=== PATIENT | male | born 1960 | race Caucasian/White ===

== ENCOUNTER 2022-04-12 07:32 | Inpatient (IN) | payer BC ==
[~2022-04-12] VITALS: Ht 175.3 cm; Wt 80.7 kg
[2022-04-12 07:32] VITALS: BP_SYST 163
--- NOTE | 2022-04-12 07:32 | NUR ---
BROUGHT BACK TO BED #5 AND TRIAGED. REPORT GIVEN TO JOCELYN
--- NOTE | 2022-04-12 07:35 | NUR ---
DR ZHOU AT BEDSIDE FOR EVALUATION
--- NOTE | 2022-04-12 08:20 | NUR ---
DR ZHOU AT BEDSIDE PERFORMING PROCEDURE
[2022-04-12 09:32] LABS: BASOPHILS % (AUTO) 0.2 % (0.0-2.0); CALCIUM 9.1 mg/dL (8.4-11.0); CREATININE 3.53 mg/dL (0.55-1.30); EOSINOPHILS % (AUTO) 0.5 % (0.0-4.0); HEMATOCRIT 47.4 % (36-54); HEMOGLOBIN 16.9 g/dL (14.0-18.0); LYMPHOCYTES # (AUTO) 1.3 K/uL (1.0-5.5); LYMPHOCYTES % (AUTO) 12.4 % (20.5-51.5); MEAN CORPUSCULAR HEMOGLOBIN 32 pg (27-31); MEAN CORPUSCULAR HGB CONC 36 % (32-36); MEAN CORPUSCULAR VOLUME 89 fL (79.0-98.0); MONOCYTES # (AUTO) 1.3 K/uL (0.0-1.0); MONOCYTES % (AUTO) 12.3 % (1.7-9.3); NEUTROPHILS # (AUTO) 7.8 K/uL (1.8-7.7); NEUTROPHILS % (AUTO) 74.6 % (40.0-70.0); PLATELET COUNT (AUTO) 278 K/uL (130-430); POTASSIUM 4.1 mmol/L (3.5-5.1); RED BLOOD CELL COUNT(AUTO) 5.34 MIL/uL (4.2-6.2); RED CELL DISTRIBUTION WIDTH 13.3 % (9.0-15.0); WHITE BLOOD COUNT (AUTO) 10.4 K/uL (4.8-10.8)
[2022-04-12 09:37] LABS: ALBUMIN 4.2 g/dL (3.4-4.8); TOTAL BILIRUBIN 0.8 mg/dL (0.0-1.0)
--- NOTE | 2022-04-12 09:37 | NUR ---
Received report at this time. (Assignment changed). No acute distress noted with patient.
[2022-04-12] MEDS ORDERED: NACL 0.9% 1,000 ML IV ONE (10:00)
--- NOTE | 2022-04-12 13:36 | NUR ---
Covid swab sent to lab at this time.
--- NOTE | 2022-04-12 13:41 | NUR ---
Pt admits to having last meal around midnight last night. Instructed pt to avoid any food and to avoid all drinks. Pt refuses to have ng tube placed at this time. NOtified Dr. Meneses of patient's decision.
[2022-04-12] MEDS ORDERED: MORPHINE 2 MG/ML INJ. SYRINGE IVP PRN (14:15)
[2022-04-12] MEDS ORDERED: D5NS 500 ML IV ONE (14:30)
--- NOTE | 2022-04-12 15:44 | NUR ---
Patient will be admitted to care of Dr. Viera. Admitted to Tele unit. Will go to room 130 bed A. Belongings list completed. Complete and up to date summary report printed. SBAR report to be given at bedside with opportunity for questions.
--- NOTE | 2022-04-12 15:54 | NUR ---
Admission Note Received patient from ER with diagnosis of Incarcerated/Strangulated inguinal hernia with small bowel obstruction. HARINI Sheehan gave initial report. Initial Plan of Care discussed-patient verbalized understanding. Family at bedside. Oriented to room, call light, pain management and safety.
[2022-04-12 16:05] VITALS: BP_SYST 140
--- NOTE | 2022-04-12 16:40 | NUR ---
SURGEON Call Spoke with MD Kim in regards to patients possible Inguinal hernia repair. stated it might possibly happen tonight by 9pm if not first thing in the morning. Consent and check list in chart. Patient was given explanation of possibilities of surgery today or tomorrow. Will endorse to nightshift nurse.
[2022-04-12 16:45] LABS: BILIRUBIN,URINE NEGATIVE (NEGATIVE); BLOOD, URINE NEGATIVE (NEGATIVE); CLARITY/URINE CLEAR (CLEAR); COLOR,URINE YELLOW (YELLOW); GLUCOSE,URINE NEGATIVE (NEGATIVE); KETONES,URINE NEGATIVE (NEGATIVE); LEUKOCYTE ESTERASE ,URINE NEGATIVE (NEGATIVE); NITRITE, URINE NEGATIVE (NEGATIVE); PH,URINE 5.5 (5.0-8.0); PROTEIN URINE NEGATIVE (NEGATIVE); UROBILINOGEN,URINE 0.2 (0.2-1.0)
--- NOTE | 2022-04-12 17:57 | NUR ---
CONCONSULTATION PAGED/CALLED Reason for Consultation: INCARCERATED HERNIA Person Who was Notified: DR LEÓN Consulting Physician: BRUCE DUNBAR Ordering Physician: MARIE KU
--- NOTE | 2022-04-12 18:54 | NUR ---
CLOSING NOTE Patient resting in bed with at bedside,No pain, No sob, no distress. RACE 20g patent and on infusion pump. Patient A/O x 4, Telugu speaking able to walk to restroom. All needs met at this time. Bed is locked and in lowest position, will endorse to nightshift nurse.
[2022-04-12 20:53] LABS: PROTHROMBIN TIME 10.4 SECS (9.5-12.5)
[2022-04-12 20:56] VITALS: BP_SYST 148
[2022-04-12] MEDS ORDERED: CLINDAMYCIN PHOSPHATE 900 mg/50mL D5W IV ONE (21:30)
[2022-04-12] MEDS ORDERED: SEVOFLURANE 15 MIN GAS INH ONE (21:30)
[2022-04-12] MEDS ORDERED: ONDANSETRON HCL 4 MG/2 ML VIAL IVP ONE (21:30)
[2022-04-12] MEDS ORDERED: MIDAZOLAM HCL 5 MG/5 ML VIAL IVP ONE (21:30)
[2022-04-12] MEDS ORDERED: BUPIVACAINE /PF 0.25% 30 ML VIAL INJ ONE (21:30)
[2022-04-12] MEDS ORDERED: LR 1,000 ML IV.SOLN IV ONE (21:30)
[2022-04-12] MEDS ORDERED: fentaNYL CITRATE/PF 100 MCG/2 ML AMP IVP ONE (21:30)
[2022-04-12] MEDS ORDERED: PROPOFOL 200MG/ 20ML VIAL (DIPRIVAN) IV ONE (21:30)
[2022-04-12] MEDS ORDERED: NS IRRIG SOLN 1000 ML IR ONE (21:30)
[2022-04-12] MEDS ORDERED: METOCLOPRAMIDE HCL 10 MG/2 ML VIAL IVP PRN (22:30)
[2022-04-12] MEDS ORDERED: ONDANSETRON HCL 4 MG/2 ML VIAL IVP PRN ×2 (22:30→23:30)
[2022-04-12] MEDS ORDERED: fentaNYL CITRATE/PF 100 MCG/2 ML AMP IVP PRN ×2 (22:30)
[2022-04-12] MEDS ORDERED: NALOXONE HCL 0.4 MG/ML AMP (NARCAN) IVP PRN (23:30)
[2022-04-12] MEDS ORDERED: HYDROmorphone 1 MG/ML INJ. CARTRIDGE IVP PRN (23:30)
[2022-04-12] MEDS ORDERED: KETOROLAC TROMETHAMINE 30 MG VIAL IVP PRN (23:30)
[2022-04-12] MEDS ORDERED: ACETAMINOPHEN 325 MG TABLET PO PRN (23:30)
[2022-04-12] MEDS ORDERED: fentaNYL CITRATE/PF 100 MCG/2 ML AMP ONE (23:58)
[2022-04-13] VITALS (11 sets, daily range): BP systolic 124–137
[2022-04-13] MEDS: D5/0.45 NS 1,000 ML IV SCH ×2 (02:13→09:30)
[2022-04-13 07:46] LABS: ALBUMIN 3.4 g/dL (3.4-4.8); CREATININE 1.63 mg/dL (0.55-1.30); TOTAL BILIRUBIN 1.1 mg/dL (0.0-1.0)
[2022-04-13 07:49] LABS: BASOPHILS % (AUTO) 0.2 % (0.0-2.0); EOSINOPHILS # (AUTO) 0.1 K/uL (0.0-0.4); EOSINOPHILS % (AUTO) 1.4 % (0.0-4.0); HEMATOCRIT 46.8 % (36-54); HEMOGLOBIN 16.5 g/dL (14.0-18.0); LYMPHOCYTES # (AUTO) 1.5 K/uL (1.0-5.5); LYMPHOCYTES % (AUTO) 15.6 % (20.5-51.5); MEAN CORPUSCULAR HEMOGLOBIN 32 pg (27-31); MEAN CORPUSCULAR HGB CONC 35 % (32-36); MEAN CORPUSCULAR VOLUME 90 fL (79.0-98.0); MONOCYTES # (AUTO) 1.3 K/uL (0.0-1.0); MONOCYTES % (AUTO) 13.9 % (1.7-9.3); NEUTROPHILS # (AUTO) 6.6 K/uL (1.8-7.7); NEUTROPHILS % (AUTO) 68.9 % (40.0-70.0); RED BLOOD CELL COUNT(AUTO) 5.19 MIL/uL (4.2-6.2); RED CELL DISTRIBUTION WIDTH 13.2 % (9.0-15.0); WHITE BLOOD COUNT (AUTO) 9.5 K/uL (4.8-10.8)
[2022-04-13 09:38] LABS: PLATELET COUNT (AUTO) 199 K/uL (130-430)
--- NOTE | 2022-04-13 20:58 | NUR ---
TRANSFERRED PATIENT TO [facility] PER PATIENT'S REQUEST. MADE AWARE OF THE TRANSFER AND CAME TO VISIT THE PATIENT WITH THEIR DAUGHTER.
[2022-04-14] MEDS: D5/0.45 NS 1,000 ML IV SCH ×2 (00:12→09:38)
[2022-04-14 04:03] VITALS: BP_SYST 126
[2022-04-14 06:41] LABS: ALBUMIN 2.8 g/dL (3.4-4.8); CALCIUM 7.9 mg/dL (8.4-11.0); CREATININE 1.04 mg/dL (0.55-1.30); POTASSIUM 3.3 mmol/L (3.5-5.1); TOTAL BILIRUBIN 1.5 mg/dL (0.0-1.0)
[2022-04-14 07:02] LABS: BASOPHILS % (AUTO) 0.5 % (0.0-2.0); EOSINOPHILS # (AUTO) 0.3 K/uL (0.0-0.4); EOSINOPHILS % (AUTO) 4.6 % (0.0-4.0); HEMATOCRIT 40.5 % (36-54); HEMOGLOBIN 14.6 g/dL (14.0-18.0); LYMPHOCYTES # (AUTO) 1.3 K/uL (1.0-5.5); LYMPHOCYTES % (AUTO) 18.5 % (20.5-51.5); MEAN CORPUSCULAR HEMOGLOBIN 32 pg (27-31); MEAN CORPUSCULAR HGB CONC 36 % (32-36); MEAN CORPUSCULAR VOLUME 88 fL (79.0-98.0); MONOCYTES # (AUTO) 1.2 K/uL (0.0-1.0); MONOCYTES % (AUTO) 16.2 % (1.7-9.3); NEUTROPHILS # (AUTO) 4.3 K/uL (1.8-7.7); NEUTROPHILS % (AUTO) 60.2 % (40.0-70.0); PLATELET COUNT (AUTO) 223 K/uL (130-430); RED CELL DISTRIBUTION WIDTH 13.1 % (9.0-15.0); WHITE BLOOD COUNT (AUTO) 7.2 K/uL (4.8-10.8)
[2022-04-14 08:00] VITALS: BP_SYST 130
[2022-04-14 12:00] VITALS: BP_SYST 124
--- NOTE | 2022-04-14 14:44 | NUR ---
DIET ADVANCED TO REGULAR SOFT DIET FOR LUNCH. PT TOLERATED DIET WITHOUT DIFFICULTY. PATIENT DENIED N/V ABD PAIN. PATIENT AMBULATED IN HALLWAY WITHOUT DIFFICULTY. PT DENIED PAIN. VITAL SIGNS STABLE.
[2022-04-14 16:00] VITALS: BP_SYST 142
--- NOTE | 2022-04-14 16:57 | NUR ---
DISCHARGE ORDER NOTED.CALLED DR. LEÓN AT [phone] TO VERIFY PT CLEARED FOR DISCHARGE. DR. LEÓN STATED OKAY TO DISCHARGE PATIENT HOME. FOLLOW UP APPOINTMENT SCHEDULED ON 04/23/2022 AT 1130 AM.
[2022-04-14 18:50] VITALS: BP_SYST 128
--- NOTE | 2022-04-14 19:24 | NUR ---
AAOX4 NAD NOTED.DISCHARGE EDUCATION PROVIDED. PT VERBALIZED UNDERSTANDING OF TEACHINGS. PIV DISCONTINUED. NO REDNESS OR BLEEDING NOTED. PT AWAITING FOR TRANSPORTATION.
[2022-04-15] MEDS ORDERED: EPIN0.3P3 IM (05:00)
[2022-04-15] MEDS ORDERED: PRED20TA PO (05:00)
[2022-04-15] MEDS ORDERED: FAMO-295 PO (05:00)
[2022-04-15] MEDS ORDERED: DIPH25TA62 PO (05:00)
== END 2022-04-14 17:45 | disposition home or self-care (01) | DRG 354 ==
LOC: SED 07:32 → SMU 14:11
PROVIDERS: ADMIT Internal Medicine; ATTEND Internal Medicine
PROC: 0DBU0ZZ Excision of Omentum, Open Approach (ICD-10-PCS; 2022-04-12)
PROC: 0WPFXJZ Removal of Synthetic Substitute from Abdominal Wall, External Approach (ICD-10-PCS; 2022-04-12)
PROC: 0WUF0JZ Supplement Abdominal Wall with Synthetic Substitute, Open Approach (ICD-10-PCS; principal; 2022-04-12 21:30)
DX: K40.31 Unilateral inguinal hernia, with obstruction, without gangrene, recurrent (principal); E87.1 Hypo-osmolality and hyponatremia; N17.9 Acute kidney failure, unspecified; N40.0 Benign prostatic hyperplasia without lower urinary tract symptoms; Z20.822 Contact with and (suspected) exposure to COVID-19; N18.9 Chronic kidney disease, unspecified; Z88.6 Allergy status to analgesic agent; Z88.5 Allergy status to narcotic agent
CPT/HCPCS: 36415; 71045; 76376; 80053; 81003; 82570; 83935; 84302; 85025; 85610-TC; 85730-TC; 86886; 86900; 86901; 87081; 88302; 88307; 93005; 96360; 99285; C1781; J2250; J2405; J2704; J3010; J3490; J7030; J7120

== ENCOUNTER 2022-04-15 01:28 | Emergency (ER) | payer BC ==
[~2022-04-15] VITALS: Ht 175.3 cm; Wt 83.9 kg
[2022-04-15 01:40] VITALS: BP_SYST 148
--- NOTE | 2022-04-15 01:45 | NUR ---
Patient triaged and placed in room 7. VSS and patient appears in no acute distress at this time. Accompanied by . MD Abarca notified of need for MSE.
--- NOTE | 2022-04-15 02:00 | NUR ---
INITIAL ASSESSMENT DONE, VSS, RASHES WITH HIVES ON DI UPPER ARM AND UPPER LEG AND INGUINAL AREA,AWAITING TO BE SEEN BY DR PRAKASH
--- NOTE | 2022-04-15 02:17 | NUR ---
DECADRON ORAL 10 MG PO GIVEN
[2022-04-15] MEDS ORDERED: ALPRAZolam 0.25 MG TABLET PO ONE (02:45)
[2022-04-15] MEDS ORDERED: EPINEPHrine HCL 1 MG/ML VIAL IM ONE (02:45)
[2022-04-15] MEDS ORDERED: MAG HYDROX/AL HYDROX/SIMETH 30 ML, LIDOCAINE VISCOUS 2% 15ML (PO) 15 ML, DICYCLOMINE HC... PO ONE ×3 (02:45)
[2022-04-15] MEDS ORDERED: methylPREDNISolone SOD SUCC/PF 62.5 MG/ML VIAL IM ONE (02:45)
[2022-04-15] MEDS ORDERED: LORATADINE 10 MG TABLET PO ONE (02:45)
[2022-04-15] MEDS ORDERED: EPINEPHRINE HCL/PF 1 MG/ML AMP ONE (03:06)
--- NOTE | 2022-04-15 03:16 | NUR ---
ORDERED MEDICATIONS GIVEN SEE EMAR
[2022-04-15] MEDS ORDERED: DIPH25TA62 PO (05:00)
[2022-04-15] MEDS ORDERED: EPIN0.3P3 IM (05:00)
[2022-04-15] MEDS ORDERED: FAMO-295 PO (05:00)
[2022-04-15] MEDS ORDERED: PRED20TA PO (05:00)
[2022-04-15 05:12] VITALS: BP_SYST 125
--- NOTE | 2022-04-15 05:14 | NUR ---
Patient given written and verbal discharge instructions and verbalizes understanding. ER DR OLINDA GLASER discussed with patient the results and treatment provided. Patient in stable condition. ID arm band removed. g . Rx of given. Patient educated on pain management and to follow up with PMD. Pain Scale . Opportunity for questions provided and answered. Medication side effect fact sheet provided.
== END 2022-04-15 05:14 | disposition home or self-care (01) ==
LOC: SED 01:28
DX: T78.2XXA Anaphylactic shock, unspecified, initial encounter (principal); L29.9 Pruritus, unspecified; R10.13 Epigastric pain; Z88.5 Allergy status to narcotic agent; Z88.6 Allergy status to analgesic agent; Z79.899 Other long term (current) drug therapy
CPT/HCPCS: 99285; 96372; J2001; J0171; J2930

== ENCOUNTER 2022-11-06 06:57 | Day surgery (SDC) | payer BC ==
[~2022-11-06] VITALS: Ht 175.3 cm; Wt 78.0 kg
[~2022-11-06 06:57] MED LIST: DIPH25TA62 PO; EPIN0.3P3 IM; FAMO-295 PO; PRED20TA PO
[2022-11-06] MEDS ORDERED: LR 1,000 ML IV SCH (09:00)
[2022-11-06] MEDS ORDERED: fentaNYL CITRATE/PF 100 MCG/2 ML AMP IVP PRN (09:00)
[2022-11-06] MEDS ORDERED: METOCLOPRAMIDE HCL 10 MG/2 ML VIAL IVP PRN (09:00)
[2022-11-06] MEDS ORDERED: MEPERIDINE HCL/PF 25 MG/ML DISP.SYRIN IVP PRN (09:00)
[2022-11-06] MEDS ORDERED: ACETAMINOPHEN I.V. 1000 MG 100 ML IV ONE (09:31)
[2022-11-06] MEDS ORDERED: ROCURONIUM BROMIDE 10 MG/ML (ZEMURON) ONE (11:35)
[2022-11-06] MEDS ORDERED: MIDAZOLAM HCL 5 MG/ML VIAL (VERSED) IV ONE (11:35)
[2022-11-06] MEDS ORDERED: WATER FOR IRRIGATION,STERILE 1,000 ML IRRIG.SOLN IR ONE (11:35)
[2022-11-06] MEDS ORDERED: ONDANSETRON HCL 4 MG/2 ML VIAL ONE (11:35)
[2022-11-06] MEDS ORDERED: LR 1,000 ML IV.SOLN IV ONE (11:35)
[2022-11-06] MEDS ORDERED: NS IRRIG SOLN 1000 ML IR ONE (11:35)
[2022-11-06] MEDS ORDERED: SUGAMMADEX SODIUM 200 MG/2 ML VIAL IV ONE (11:35)
[2022-11-06] MEDS ORDERED: fentaNYL CITRATE/PF 100 MCG/2 ML AMP ONE (11:35)
[2022-11-06] MEDS ORDERED: PROPOFOL 200MG/ 20ML VIAL (DIPRIVAN) IV ONE (11:35)
[2022-11-06] MEDS ORDERED: BUPIVACAINE /PF 0.25% 30 ML VIAL INJ ONE (11:35)
[2022-11-06] MEDS ORDERED: LIDOCAINE 2%, 20 ML MDV ONE (11:35)
[2022-11-06] MEDS ORDERED: CEFAZOLIN 1 GM IVPB PREMIX 50 ML IV ONE (11:35)
[2022-11-06] MEDS ORDERED: KETOROLAC TROMETHAMINE 30 MG VIAL ONE (11:35)
[2022-11-06] MEDS ORDERED: DEXAMETHASONE SOD PHOSPHATE 4 MG/ML VIAL ONE (11:35)
[2022-11-06] MEDS ORDERED: DESFLURANE 15 MIN GAS INH ONE (11:35)
[2022-11-06 13:52] VITALS: BP_SYST 115
== END 2022-11-06 13:46 | disposition home or self-care (01) ==
LOC: SDS 06:57 → SMU 06:58 → SDS 13:46
PROVIDERS: ATTEND Surgery
DX: K40.91 Unilateral inguinal hernia, without obstruction or gangrene, recurrent (principal); J45.909 Unspecified asthma, uncomplicated; Z88.0 Allergy status to penicillin; F41.9 Anxiety disorder, unspecified; E78.5 Hyperlipidemia, unspecified; Z79.899 Other long term (current) drug therapy
CPT/HCPCS: 87081; 49651; J3490 ×2; J0690; J1100; J1885; J2001; J2250; J2405; J2704; J3010; J7120; C1727; C1781; J0131; S2900; E0190